=== PATIENT | female | born 1985 | race Hispanic/Latino ===

== ENCOUNTER 2017-05-19 00:58 | Emergency (ER) | payer OTHER ==
[2017-05-19 01:08] VITALS: BMI 32.6
[2017-05-19 01:10] VITALS: BP 155/90; PULSE 104; RESP 16; TEMP 98.1; O2SAT 100
--- NOTE | 2017-05-19 01:16 | ED PDOC ---
Arrival/HPI - General Chief Complaint: Lower Extremity Problem/Injury Time Seen by Provider: 05/19/17 01:11 - History of Present Illness Narrative History of Present Illness (Text): 05/19/17 01:18 31 y/o F w/ PMHx of HTN presents to the ED c/o L calf pain and tenderness. Pt reports pain has been present since March but has significantly worsened x24hrs. Pain is now constant, non-radiating, and has spread to the posterior knee. Pt admits to trying OTC pain medications and warm compresses w/ no relief. Pt denies numbness, tingling, weakness of the LLE. Pt admits to SOB, worse on exertion x6mons. Pt denies any recent injury, travel, or hormone therapy. Pt admits to FHx of PE. Pt denies tobacco, drug use, or significant EtOH use. (Thao Linares) Past Medical History - Provider Review Nursing Documentation Reviewed: Yes - Infectious Disease Hx of Infectious Diseases: None - Tetanus Immunization Tetanus Immunization: Unknown - Past Medical History Past Medical History: No Previous - Cardiac Hx Hypertension: Yes - Pulmonary Hx Respiratory Disorders: No - Neurological Hx Neurological Disorder: No - HEENT Hx HEENT Disorder: No - Renal Hx Renal Disorder: No - Endocrine/Metabolic Hx Endocrine Disorders: No - Hematological/Oncological Hx Blood Disorders: No - Integumentary Hx Dermatological Disorder: No - Musculoskeletal/Rheumatological Hx Musculoskeletal Disorders: No - Gastrointestinal Hx Gastrointestinal Disorders: No - Genitourinary/Gynecological Hx Genitourinary Disorders: No - Psychiatric Hx Depression: No Hx Emotional Abuse: No Hx Physical Abuse: No Hx Substance Use: No - Surgical History Hx Section: Yes Hx Cholecystectomy: Yes Hx Orthopedic Surgery: Yes (rhinoplasty) Hx Tonsillectomy: Yes - Anesthesia Hx Anesthesia: Yes Hx Anesthesia Reactions: No Hx Malignant Hyperthermia: No - Suicidal Assessment Feels Threatened In Home Enviroment: No Family/Social History - Physician Review Nursing Documentation Reviewed: Yes Family/Social History: No Known Family HX Smoking Status: Never Smoked Hx Alcohol Use: No Hx Substance Use: No Hx Substance Use Treatment: No Allergies/Home Meds Allergies/Adverse Reactions: Allergies No Known Allergies Allergy (Verified 05/19/17 01:08) Home Medications: Home Meds Medication Instructions Recorded Confirmed Lisinopril [Zestril] 10 mg PO DAILY 05/19/17 05/19/17 Review of Systems - Physician Review All systems were reviewed & negative as marked: Yes - Review of Systems Constitutional: absent: Fevers Cardiovascular: absent: Chest Pain Physical Exam Vital Signs Reviewed: Yes Temperature: Afebrile Blood Pressure: Hypertensive Pulse: Tachycardic Respiratory Rate: Normal Appearance: Positive for: Well-Appearing, Non-Toxic, Comfortable Pain Distress: Mild Mental Status: Positive for: Alert and Oriented X 3 - Systems Exam Head: Present: Atraumatic, Normocephalic Pupils: Present: PERRL Extroacular Muscles: Present: EOMI Conjunctiva: Present: Normal Mouth: Present: Moist Mucous Membranes Neck: Present: Normal Range of Motion Respiratory/Chest: Present: Clear to Auscultation, Good Air Exchange. No: Respiratory Distress, Accessory Muscle Use Cardiovascular: Present: Regular Rate and Rhythm, Normal S1, S2. No: Murmurs Abdomen: No: Tenderness, Distention Upper Extremity: Present: Normal Inspection Lower Extremity: Present: CALF TENDERNESS, Tenderness (posterior knee). No: Edema, Cyanosis, Bhupinder's Sign, Swelling, Erythema Neurological: Present: GCS=15, Speech Normal Skin: Present: Warm, Dry, Normal Color Psychiatric: Present: Alert, Oriented x 3, Normal Affect, Normal Mood Vital Signs Temp Pulse Resp BP Pulse Ox 05/19/17 01:10 98.1 F 104 H 16 155/90 H 100 Medical Decision Making - Lab Interpretations I have reviewed the lab results: Yes - RAD Interpretation Yarder Operator: ED Physician (CXR: no active disease) - EKG Interpretation Interpreted by ED Physician: Yes (NSR, rate 87, no axis rotation/deviation) Type: 12 lead EKG ED Course and Treatment: Patient seen and examined with resident. Came up with treatment and disposition plan with resident. (Ramesh Enrique) 05/19/17 01:49 31 y/o F w/ LLE pain and SOB - Labs - LLE venous doppler - CXR - EKG - reassess and dispo 05/19/17 01:59 Pt is low risk for PE/DVT according to the Well's Criteria. D-dimer ordered to r /o DVT/PE. 05/19/17 03:02 Pt reports leg pain unchanged. D-dimer negative. CXR negative for active disease Pt away at Doppler. discharge pending results. 05/19/17 03:42 Doppler negative for DVT. Discussed results w/ pt, pt demonstrated understanding Discussed need for f/u w/ PMD. Pt instructed to return if any new or concerning symptoms develop. (Thao Linares ) - Lab Interpretations Lab Results: 05/19/17 02:14 05/19/17 02:14 Lab Results 05/19/17 02:14: Sodium 137, Potassium 4.2, Chloride 101, Carbon Dioxide 27, Anion Gap 13, BUN 17, Creatinine 0.7, Est GFR ( Amer) > 60, Est GFR (Non- Af Amer) > 60, Random Glucose 94, Calcium 9.8, Total Bilirubin 0.6, AST 19, ALT 26, Alkaline Phosphatase 69, Lactate Dehydrogenase 319 L, Total Creatine Kinase 46, Troponin I < 0.01, NT-Pro-B Natriuret Pep 61.0, Total Protein 7.3, Albumin 4.0, Globulin 3.3, Albumin/Globulin Ratio 1.2 05/19/17 02:14: D-Dimer, Quantitative 0.39 05/19/17 02:14: WBC 10.3, RBC 4.46, Hgb 12.9, Hct 38.1, MCV 85.4, MCH 28.9, MCHC 33.9, RDW 12.6, Plt Count 238, MPV 10.5, Gran % 57.4, Lymph % (Auto) 34.9, [place] % (Auto) 5.1, Eos % (Auto) 2.3, Baso % (Auto) 0.3, Gran # 5.91, Lymph # 3.6 H, [place] # 0.5, Eos # 0.2, Baso # 0.03 - RAD Interpretation Narrative RAD Interpretations (Text): 05/19/17 03:28 LLE venous duplex preliminary read negative for DVT. (hTao Linares) Radiology Orders: 05/19/17 01:47 CXR [CHEST PORTABLE] [RAD] Stat DUPLEX LOWER EXTRM VEIN LEFT [US] Stat - Medication Orders Current Medication Orders: Discontinued Medications Ketorolac Tromethamine (Toradol) 30 mg IVP STAT STA Stop: 05/19/17 01:51 Last Admin: 05/19/17 02:16 Dose: 30 mg Disposition/Present on Arrival - Present on Arrival Any Indicators Present on Arrival: No History of DVT/PE: No History of Uncontrolled Diabetes: No Urinary Catheter: No History of Decub. Ulcer: No History Surgical Site Infection Following: None - Disposition Have Diagnosis and Disposition been Completed?: Yes Disposition Time: 03:30 Patient Plan: Discharge - Disposition Diagnosis: Pain of left calf Disposition: HOME/ ROUTINE Patient Problems: Current Active Problems Problem Status Onset Pain of left calf Acute Condition: STABLE Discharge Instructions (ExitCare): Leg Cramps (ED), RICE Therapy (ED), Leg Pain (ED) Additional Instructions: Follow up with Primary doctor within 1 week Take all home medication as prescribed Return to the ED if any new or concerning symptoms. Referrals: Sade SUTTON,Devonte Guy MD [Primary Care Provider] - Follow up with primary
[2017-05-19 02:22] LABS: ADD MANUAL DIFF? NO
[2017-05-19 02:45] LABS: ALB/GLOB RATIO 1.2 (1.1-1.8); ALKALINE PHOSPHATASE 69 U/L (38-133); ALT/SGPT 26 U/L (7-56); AST/SGOT 19 U/L (15-39); BILIRUBIN,TOTAL 0.6 mg/dL (0.2-1.3); BLOOD UREA NITROGEN 17 mg/dL (7-21); CALCIUM 9.8 mg/dL (8.4-10.5); CARBON DIOXIDE 27 mmol/L (21-33); CHLORIDE 101 mmol/L (98-107); GFR AFRICAN-AMERICAN > 60; GLUCOSE,RANDOM 94 mg/dL (70-110); POTASSIUM 4.2 mmol/L (3.6-5.0); SODIUM 137 mmol/L (132-148); TOTAL PROTEIN 7.3 g/dL (5.8-8.3)
[2017-05-19 02:53] LABS: BASO # 0.03 K/mm3 (0.0-2.0); BASO % 0.3 % (0.0-3.0); EOS # 0.2 (0.0-0.7); EOS % 2.3 % (1.5-5.0); GRAN # 5.91 (1.4-6.5); GRAN % 57.4 % (50.0-68.0); HEMATOCRIT 38.1 % (36.0-48.0); LYMPH # 3.6 (1.2-3.4); LYMPH % 34.9 % (22.0-35.0); MEAN CELL VOLUME 85.4 fL (80.0-105.0); MEAN CORPUSCULAR HEMOGLOBIN 28.9 pg (25.0-35.0); MEAN CORPUSCULAR HGB CONC 33.9 g/dl (31.0-37.0); MEAN PLATELET VOLUME 10.5 fl (7.0-11.0); MONO # 0.5 (0.1-0.6); MONO % 5.1 % (1.0-6.0); PLATELET COUNT 238 10^3/uL (120.0-450.0); RED CELL DISTRIBUTION WIDTH 12.6 % (11.5-14.5); WHITE BLOOD COUNT 10.3 10^3/ul (4.5-11.0)
[2017-05-19 03:01] LABS: TROPONIN I < 0.01 ng/mL
--- NOTE | 2017-05-19 08:37 | RAD ---
HISTORY: sob COMPARISON: No prior. FINDINGS: LUNGS: No active pulmonary disease. PLEURA: No significant pleural effusion identified, no pneumothorax apparent. CARDIOVASCULAR: Normal. OSSEOUS STRUCTURES: No significant abnormalities. VISUALIZED UPPER ABDOMEN: Normal. OTHER FINDINGS: None. IMPRESSION: No active disease.
--- NOTE | 2017-05-19 13:58 | CARD ---
APPROVED REPORT EKG Measurement Heart [id number] <Conclusion> Normal sinus rhythm Normal ECG
--- NOTE | 2017-05-20 13:17 | US ---
PROCEDURE: Left lower extremity venous US HISTORY: Leg pain and swelling. Evaluate for DVT. PHYSICIAN(S): Garrett Mix MD. TECHNIQUE: Duplex sonography and color-flow Doppler with graded compression were used to evaluate the deep venous system of the left lower extremity. FINDINGS: The visualized deep venous system of the left lower extremity is sonographically normal and compressible. Normal wave forms and augmentation are seen. There is no sonographic evidence for deep venous thrombosis in the visualized segments of the left lower extremity. IMPRESSION: 1. No sonographic evidence for deep venous thrombosis in the visualized segments of the left lower extremity.
== END 2017-05-19 03:07 | disposition home or self-care (01) ==
LOC: ED 00:58
DX: M79.662 Pain in left lower leg (principal); I10 Essential (primary) hypertension
CPT/HCPCS: 71010; 80053; 82550; 83615; 83880; 84484; 85025; 85378; 93005; 93971; 96374; 99283; J1885

== ENCOUNTER 2017-12-11 13:50 | Emergency (ER) | payer OTHER ==
[2017-12-11 13:50] VITALS: BMI 32.6
[2017-12-12] MEDS ORDERED: Succinylcholine 200 mg/10 ml Inj IV ONE (18:18)
[2017-12-12] MEDS ORDERED: Etomidate 20 mg/10ml Inj IV ONE (18:18)
== END 2017-12-11 15:22 | disposition left against medical advice (07) ==
LOC: ED 13:50
DX: Z02.89 Encounter for other administrative examinations (principal); T50.995A Adverse effect of other drugs, medicaments and biological substances, initial encounter